=== PATIENT | female | born 1995 ===

== ENCOUNTER 2018-07-06 14:29 | Emergency (ER) | payer OTHER ==
[~2018-07-06] VITALS: Ht 162.6 cm; Wt 52.5 kg
[2018-07-06 14:34] VITALS: TEMP 37.1; Ht 162.6 cm; Wt 52.5 kg
[2018-07-06] MEDS ORDERED: SODIUM CHLORIDE 0.9% 1000ML 1,000 ML IV STA (14:56)
[2018-07-06] MEDS ORDERED: PROCHLORPERAZINE 5 MG/ML 2 ML VIAL IV STA (14:56)
[2018-07-06] MEDS ORDERED: KETOROLAC TROMETHAMINE 30 MG/ML VIAL IV STA (14:56)
--- NOTE | 2018-07-06 15:52 | EMERGENCY ROOM VISIT NOTE ---
ED Visit Note First contact with patient: 14:41 CHIEF COMPLAINT: Headache/migraine, flulike symptoms HISTORY OF PRESENTING ILLNESS: This is a 22-year-old female with past medical history of migraine headaches who presents to the emergency department by private vehicle with complaint of flulike symptoms and migraine headaches for 2 days. She states that her roommate got sick a few days before her with fevers and body aches, she feels like she got the same thing that her roommate has. She started getting headaches yesterday She states that last night she felt like she may have a fever and had a lot of chills, but she did not check her temperature. She reports a history of migraines, she states this feels similar. This is not the worst headache of her life, and states it is not even the worst migraine she has ever had. She describes the headache as constant, throbbing, frontal and behind the eyes, 5/10. She tried Tylenol for the headache yesterday, which did help some, she has not taken any medications today. She has associated nausea and light sensitivity. She also complains of some sinus congestion and a mild cough, but denies sore throat or ear pain. She denies any neck pain or stiffness. She denies any unusual rash. She denies any chest pain, shortness of breath, dizziness or syncope, abdominal pain , vomiting, diarrhea, urinary symptoms. REVIEW OF SYSTEMS: A complete 10 point review of systems was reviewed with the patient with pertinent positives and negatives as per history of present illness. All else were negative. PAST MEDICAL HISTORY: Migraine headaches SOCIAL HISTORY: Lives at home. She denies tobacco use. She is a [employer] student. ALLERGIES: No known allergies. PHYSICAL EXAM: CONSTITUTIONAL: Pleasant and cooperative. No acute distress. Mildly dehydrated , but otherwise well appearing and well nourished. HEENT: Normocephalic, atraumatic. Pupils equal, round and reactive to light, EOMI. TMs normal. Pharynx normal. Tacky mucous membranes. NECK: Supple, full active range of motion without discomfort. No nuchal rigidity or meningismus. No cervical adenopathy. RESPIRATORY: Clear to auscultation bilaterally with no wheezing, crackles, rhonchi or stridor. Equal expansion bilaterally. CARDIOVASCULAR: Regular rate and rhythm with no murmurs, rubs or gallops. Normal peripheral perfusion. No edema. GASTROINTESTINAL: Soft, nontender, nondistended. No palpable masses or HSM. Bowel sounds present in all quadrants. MUSCULOSKELETAL: Full range of motion of all joints without discomfort. INTEGUMENTARY: No rash or other significant dermatologic conditions noted. NEUROLOGIC: Alert and oriented X 4 with normal affect. Cranial nerves II-XII grossly intact, no facial droop. No pronator drift. No focal neurologic deficits noted. Normal strength and sensation in all 4 tremors. Normal speech. Normal gait observed. ED COURSE AND MEDICAL DECISION MAKING: CC: Patient presenting with complaint of headache/migraine, flulike symptoms DIFFERENTIAL DIAGNOSIS: Includes, but not limited to viral illness, bronchitis , pneumonia, UTI, dehydration, tension headache, migraine headache, meningitis, among others. INTERPRETATION OF LABS: No leukocytosis, no anemia, normal platelets, no significant electrolyte abnormalities, normal renal function, normal liver enzymes. UA negative for infection. Negative urine . MEDICATION RECONCILIATION: I attest that I have personally reviewed the patient 's current medication list. INITIAL VITAL SIGNS REVIEW: I reviewed the patient's initial vital signs and interpret them as follows: T: Afebrile; BP: Normotensive; HR: Mildly tachycardic; RR: Within normal limits; Pulse Ox: Within normal limits on room air. Blood pressure screening: The patient was found to have normal blood pressure on screening and does not require follow-up for repeat blood pressure check. SUMMARY: Patient was evaluated at bedside, history and physical exam performed. Patient is alert and oriented, in no acute distress, resting calmly in the stretcher. Neurologic exam is fully intact with no focal deficits. No neck pain on exam, no nuchal rigidity or meningismus. I do not suspect meningitis. Patient does appear to be mildly dehydrated and is noted to be mildly tachycardic. She is afebrile. Orders were placed at bedside for labs, UA and urine , IV fluids for hydration, migraine cocktail to treat headache, chest x-ray to evaluate for pneumonia. Patient discussed with Dr. Stevens, who agrees with my assessment and plan. Labs reviewed as above, unremarkable. Patient refused chest x-ray. Patient reassessed multiple times throughout ED stay, she has remained stable, tachycardia is downtrending, and she reports that her headache is completely gone rating it 0/10 on reassessment. Overall, she states she feels much better and is asking to be discharged. Patient was updated on all results and plan for discharge, she was encouraged to follow with her PCP or [facility] for further management of her symptoms if they persist. Patient was also given strict return precautions should her symptoms worsen, she verbalized understanding. Patient was discharged home in stable condition and ambulatory. Current/Historical Medications No Active Prescriptions or Reported Meds Allergies Coded Allergies: No Known Allergies (Unverified , 07/06/18) Vital Signs Date Time Temp Pulse Resp B/P (MAP) Pulse Ox O2 Delivery O2 Flow Rate FiO2 07/06/18 17:37 95 120/72 99 Room Air 07/06/18 17:30 95 20 120/72 99 Room Air 07/06/18 14:34 37.1 104 20 108/75 99 Room Air Laboratory Results 07/06/18 16:11 Red Blood Count 4.88, Mean Corpuscular Volume 78.7, Mean Corpuscular Hemoglobin 27.5, Mean Corpuscular Hemoglobin Concent 34.9, Mean Platelet Volume 10.4, Neutrophils (%) (Auto) 56.9, Lymphocytes (%) (Auto) 35.7, Monocytes (%) (Auto) 5.4, Eosinophils (%) (Auto) 0.4, Basophils (%) (Auto) 0.6, Neutrophils # (Auto) 2.75, Lymphocytes # (Auto) 1.73, Monocytes # (Auto) 0.26, Eosinophils # (Auto) 0.02, Basophils # (Auto) 0.03 07/06/18 16:11 Test 07/06/18 15:42 07/06/18 16:11 Urine Color YELLOW Urine Appearance CLEAR (CLEAR) Urine pH 7.0 (4.5-7.5) Urine Specific Ellis 1.006 (1.000-1.030) Urine Protein NEG (NEG) Urine Glucose (UA) NEG (NEG) Urine Ketones NEG (NEG) Urine Occult Blood 1+ (NEG) Urine Nitrite NEG (NEG) Urine Bilirubin NEG (NEG) Urine Urobilinogen NEG (NEG) Urine Leukocyte Esterase TRACE (NEG) Urine WBC (Auto) /hpf (0-5) Urine RBC (Auto) /hpf (0-4) Urine Hyaline Casts (Auto) /lpf (0-5) Urine Epithelial Cells (Auto) /lpf (0-5) Urine Bacteria (Auto) (NEG) Urine RBC 0-4 /hpf (0-4) Urine WBC 1-5 /hpf (0-5) Urine Epithelial Cells 0-5 /lpf (0-5) Urine Bacteria 1+ (NEG) Urine Test NEG (NEG) White Blood Count 4.84 K/uL (4.8-10.8) Red Blood Count 4.88 M/uL (4.2-5.4) Hemoglobin 13.4 g/dL (12.0-16.0) Hematocrit 38.4 % (37-47) Mean Corpuscular Volume 78.7 fL (80-100) Mean Corpuscular Hemoglobin 27.5 pg (25-34) Mean Corpuscular Hemoglobin Concent 34.9 g/dl (32-36) Platelet Count 138 K/uL (130-400) Mean Platelet Volume 10.4 fL (7.4-10.4) Neutrophils (%) (Auto) 56.9 % Lymphocytes (%) (Auto) 35.7 % Monocytes (%) (Auto) 5.4 % Eosinophils (%) (Auto) 0.4 % Basophils (%) (Auto) 0.6 % Neutrophils # (Auto) 2.75 K/uL (1.4-6.5) Lymphocytes # (Auto) 1.73 K/uL (1.2-3.4) Monocytes # (Auto) 0.26 K/uL (0.11-0.59) Eosinophils # (Auto) 0.02 K/uL (0-0.5) Basophils # (Auto) 0.03 K/uL (0-0.2) RDW Standard Deviation 38.4 fL (36.4-46.3) RDW Coefficient of Variation 13.6 % (11.5-14.5) Immature Granulocyte % (Auto) 1.0 % Immature Granulocyte # (Auto) 0.05 K/uL (0.00-0.02) Platelet Estimate NORMAL Anion Gap 8.0 mmol/L (3-11) Est Creatinine Clear Calc Drug Dose 119.0 ml/min Estimated GFR () 149.4 Estimated GFR (Non- 128.9 BUN/Creatinine Ratio 10.2 (10-20) Calcium Level 9.0 mg/dl (8.5-10.1) Total Bilirubin 0.5 mg/dl (0.2-1) Aspartate Amino Transf (AST/SGOT) U/L (15-37) Alanine Aminotransferase (ALT/SGPT) 23 U/L (12-78) Alkaline Phosphatase 143 U/L (45-117) Total Protein 7.2 gm/dl (6.4-8.2) Albumin 3.9 gm/dl (3.4-5.0) Globulin 3.3 gm/dl (2.5-4.0) Albumin/Globulin Ratio 1.2 (0.9-2) Medications Administered Medications (Trade) Dose Ordered Sig/Junior Route Start Time Stop Time Status Last Admin Dose Admin Prochlorperazine Edisylate (Compazine Inj) 10 mg NOW STAT IV 07/06/18 14:56 07/06/18 14:58 DC 07/06/18 16:21 10 MG Sodium Chloride 1,000 ml @ 999 mls/hr Q1H1M STAT IV 07/06/18 14:56 07/06/18 15:56 DC 07/06/18 16:21 999 MLS/HR Ketorolac Tromethamine (Toradol Inj) 15 mg NOW STAT IV 07/06/18 14:56 07/06/18 14:58 DC 07/06/18 14:56 15 MG Departure Information Impression Primary Impression: Migraine Additional Impression: Flu-like symptoms Dispostion Home / Self-Care Condition GOOD Prescriptions No Active Prescriptions or Reported Meds Referrals [facility] (PCP) Patient Instructions ED Headache Migraine, My [facility] Additional Instructions You have been evaluated and treated in the emergency department today for your migraine and flulike symptoms. Rest today in a quiet, peaceful, dark environment and get a full 8-10 hrs of sleep tonight. Avoid loud noises, smoke/smoking, alcohol, bright lights, stress, or physical exertion today to minimize the chance the headache may return. Continue current medications as prescribed. Ibuprofen(Motrin, Advil) may be used for fever or pain. Use 600mg every 6-8 hours as needed. Take with food. Avoid using more than 2400mg in a 24 hour period. Do not use 2400mg per day for more than three consecutive days without physician direction. Prolonged inappropriate use can lead to stomach upset or ulcers. (AND/OR) Acetaminophen(Tylenol) may be used for fever or pain. Use 1000mg every 8 hours as needed. Avoid using more than 3000 mg in a 24 hour period. For best results, you can alternate between ibuprofen and Tylenol every 3-4 hours. Drink plenty of fluids to stay well hydrated. Even mild dehydration can make migraine headaches worse. Return to the ER for passing out, worsening headache, vision problems, neck stiffness/pain, fevers >101, persistent vomiting, severe dizziness or passing out, or any other concerns. Follow up with your primary care provider or S in 2-3 days for a recheck of your current condition. School Instructions Return To School: 2 days Problem Qualifiers Primary Impression: Migraine Migraine type: unspecified Status migrainosus presence: without status migrainosus Intractability: not intractable Qualified Codes: G43.909 - Migraine, unspecified, not intractable, without status migrainosus
[2018-07-06 17:05] LABS: HEMATOCRIT 38.4 % (37-47); HEMOGLOBIN 13.4 g/dL (12.0-16.0); MEAN CELL VOLUME 78.7 fL (80-100); MEAN CORPUSCULAR HEMOGLOBIN 27.5 pg (25-34); MEAN CORPUSCULAR HGB CONC 34.9 g/dl (32-36); MEAN PLATELET VOLUME 10.4 fL (7.4-10.4); PLATELET COUNT 138 K/uL (130-400); RED CELL DISTRIBUTION WIDTH CV 13.6 % (11.5-14.5); RED CELL DISTRIBUTION WIDTH SD 38.4 fL (36.4-46.3); WHITE BLOOD COUNT 4.84 K/uL (4.8-10.8)
[2018-07-06 17:06] LABS: BASO % 0.6 %; BASO ABS # 0.03 K/uL (0-0.2); EOS % 0.4 %; EOS ABS # 0.02 K/uL (0-0.5); IG# 0.05 K/uL (0.00-0.02); LYMPH % 35.7 %; LYMPH ABS # 1.73 K/uL (1.2-3.4); MONO % 5.4 %; MONO ABS # 0.26 K/uL (0.11-0.59); NEUT % 56.9 %; NEUT ABS # 2.75 K/uL (1.4-6.5)
[2018-07-06 17:19] LABS: ALBUMIN 3.9 gm/dl (3.4-5.0); CREATININE 0.62 mg/dl (0.60-1.20); TOTAL PROTEIN 7.2 gm/dl (6.4-8.2)
[2018-07-06 17:37] VITALS: BP 120/72; PULSE 95; O2SAT 99
== END 2018-07-06 17:40 | disposition home or self-care (01) ==
LOC: C.EDB 14:32 → C.EDC 17:40
DX: G43.909 Migraine, unspecified, not intractable, without status migrainosus (principal); R09.81 Nasal congestion; E86.0 Dehydration